=== PATIENT | male | born 1990 | race Two or more races ===

== ENCOUNTER 2018-02-11 05:39 | Inpatient (IN) | payer OTHER ==
[2018-02-11] MEDS ORDERED: BUPIVACAINE-EPI 0.25%-1:200000 50 ML VIAL. (06:18)
[2018-02-11] MEDS: IV RINGERS,LACTATED 1000ML 1,000 ML IV (06:30)
[2018-02-11] MEDS ORDERED: fentaNYL PF VIAL 100 MCG/2 ML VIAL IV (07:00)
[2018-02-11] MEDS ORDERED: MORPHINE SULFATE 4 MG/ML DISP.SYRIN. IV (07:00)
[2018-02-11] MEDS ORDERED: ONDANSETRON PF 4 MG/2 ML VIAL. IV (07:00)
[2018-02-11] MEDS ORDERED: PROCHLORPERAZINE 10 MG/2 ML VIAL. IV (07:00)
[2018-02-11] MEDS ORDERED: fentaNYL PF VIAL 100 MCG/2 ML VIAL ×3 (07:30→09:59)
[2018-02-11] MEDS ORDERED: MIDAZOLAM HCL/PF 2 MG/2 ML VIAL. (07:30)
[2018-02-11] MEDS ORDERED: DEXAMETHASONE SOD PHOS 20 MG/5 ML VIAL. (08:16)
[2018-02-11] MEDS ORDERED: PROPOFOL 20 ML IV ×3 (08:16→08:57)
[2018-02-11] MEDS ORDERED: LIDOCAINE 1% PF 5 ML VIAL. (08:16)
[2018-02-11] MEDS ORDERED: ONDANSETRON PF 4 MG/2 ML VIAL. (08:16)
[2018-02-11] MEDS ORDERED: MORPHINE SULFATE 10 MG/ML VIAL. IV (09:30)
[2018-02-11] MEDS ORDERED: diphenhydrAMINE 50 MG/ML VIAL IV (09:30)
[2018-02-11] MEDS ORDERED: diphenhydrAMINE HCL 25 MG CAPSULE PO (09:30)
[2018-02-11] MEDS ORDERED: 0.9 % SODIUM CHLORIDE 10 ML DISP.SYRIN. IV (09:30)
[2018-02-11] MEDS: LIDOCAINE 1% PF 2 ML VIAL. ID (10:13)
[2018-02-11] MEDS: fentaNYL PF VIAL 100 MCG/2 ML VIAL IV ×2 (10:21→10:51)
[2018-02-11] MEDS: POTASSIUM CL 20MEQ-0.45% NACL 1,000 ML IV (12:07)
[2018-02-11] MEDS: DICLOFENAC SODIUM 25 MG TABLET.DR PO (12:10)
[2018-02-11] MEDS: oxyCODONE IR 5 MG TABLET PO ×2 (15:39→21:26)
[2018-02-11] MEDS: DOCUSATE SODIUM 100 MG CAPSULE. PO (21:25)
[2018-02-12] MEDS: POTASSIUM CL 20MEQ-0.45% NACL 1,000 ML IV (00:20)
[2018-02-12] MEDS: oxyCODONE IR 5 MG TABLET PO ×2 (01:30→09:01)
[2018-02-12] MEDS: DOCUSATE SODIUM 100 MG CAPSULE. PO (08:53)
[2018-02-12] MEDS: ENOXAPARIN 40 MG/0.4 ML SYRINGE. SQ (08:54)
[2018-02-12] MEDS: DICLOFENAC SODIUM 25 MG TABLET.DR PO (08:54)
== END 2018-02-12 14:05 | DRG 352 ==
LOC: SURG 05:39 → 4 NORTH 10:49
PROC: 0YU60JZ Supplement Left Inguinal Region with Synthetic Substitute, Open Approach (ICD-10-PCS; principal; 2018-02-11 07:54)
PROC: 0DBU0ZZ Excision of Omentum, Open Approach (ICD-10-PCS; 2018-02-11 07:54)
DX: K40.30 Unilateral inguinal hernia, with obstruction, without gangrene, not specified as recurrent (principal); Z88.0 Allergy status to penicillin; Z88.1 Allergy status to other antibiotic agents; Z88.2 Allergy status to sulfonamides; Z88.8 Allergy status to other drugs, medicaments and biological substances
CPT/HCPCS: 88302; C1781; J1100; J1650; J1956; J2250; J2405; J2704; J3010